=== PATIENT | female | born 2000 | race African-American/Black ===

== ENCOUNTER 2025-10-22 09:04 | Emergency (ER) | payer OTHER ==
[~2025-10-22] VITALS: Ht 177.8 cm; Wt 102.9 kg
[2025-10-22 10:37] LABS: BASO # 0.0 10^3/uL (0.0-0.2); BASO % 0.3 % (0.0-1.0); EOS # 0.1 10^3/uL (0.0-0.5); EOS % 1.3 % (0.0-3.0); LYMPH # 2.9 10^3/uL (1.5-5.0); LYMPH % 45.0 % (24.0-44.0); MONO # 0.6 10^3/uL (0.0-0.8); MONO % 9.9 % (2.0-8.0); NEUTROPHILS # 2.8 10^3/uL (1.5-8.5); NEUTROPHILS % 43.2 % (36.0-66.0); PLATELET COUNT, AUTOMATED 269 10^3/uL (150-450)
[2025-10-22 10:38] LABS: KETONE, URINE AUTO RFX NEGATIVE (NEGATIVE); LEUKOCYTE ESTERASE UR AUTO RFX NEGATIVE (NEGATIVE); NITRITE, URINE AUTO RFX NEGATIVE (NEGATIVE); RBC, URINE AUTO RFX 0 /HPF (0-3); SQUAM EPITHELIAL CELL UR AURFX 1 /HPF (0-6); WBC, URINE AUTO RFX 2 /HPF (0-3)
[2025-10-22 11:03] LABS: HCG, SERUM QUALITATIVE NEGATIVE (NEGATIVE)
[2025-10-22 11:04] LABS: ALT/SGPT 21 U/L (7.0-40); AST/SGOT 25 U/L (<34); CALCIUM LEVEL 9.6 MG/DL (8.5-10.1); CARBON DIOXIDE LEVEL 29 MMOL/L (20-31); CHLORIDE LEVEL 102 MMOL/L (98-107); CREATININE FOR GFR 0.57 MG/DL (0.55-1.30); GLOMERULAR FILTRATION RATE > 90.0 (>60); POTASSIUM SERUM 4.7 MMOL/L (3.5-5.1); SODIUM LEVEL 140 MMOL/L (136-145)
[2025-10-22 13:18] LABS: Trichomonas vaginalis (AMP) NOT DETECTED (NEGATIVE)
[2025-10-22 13:42] LABS: GC DNA AMPLIFICATION NEGATIVE (NEGATIVE)
[2025-10-22] MEDS: FLUCONAZOLE 50 MG TABLET PO ONE (14:40)
[2025-10-22 15:14] VITALS: BP 121/81; TEMP 98.7; O2SAT 96
[2025-10-22 15:22] LABS: HIV 1&2 SCREEN NEGATIVE (NEGATIVE)
[2025-10-27 09:37] LABS: HSV SOURCE Serum; HSV-1 DNA Not Detected (Not Detected); HSV-2 DNA Not Detected (Not Detected)
== END 2025-10-22 15:23 | disposition home or self-care (01) ==
LOC: M ED 09:04
DX: B37.31 Acute candidiasis of vulva and vagina (principal); D25.2 Subserosal leiomyoma of uterus; R10.20 Pelvic and perineal pain unspecified side